=== PATIENT | female | born 1935 | race Caucasian/White ===

== ENCOUNTER → 2023-08-22 | Outpatient (CLI) | payer MEDICAID | LOC: MHCPAIN 10:01 | DX: M47.812 Spondylosis without myelopathy or radiculopathy, cervical region (principal); M48.02 Spinal stenosis, cervical region; M54.2 Cervicalgia; G44.86 Cervicogenic headache | CPT/HCPCS: G0463 ==

== ENCOUNTER → 2023-11-08 | Outpatient (CLI) | payer OTHER ==
[~2023-11-08] MED LIST: Atropine 1 MG/10 ML SYRINGE IV ONE
== END ==
LOC: MHCPAIN 09:31
DX: M47.812 Spondylosis without myelopathy or radiculopathy, cervical region (principal); M54.2 Cervicalgia
CPT/HCPCS: J0461; J0665

== ENCOUNTER → 2024-01-24 | Outpatient (CLI) | payer OTHER ==
[~2024-01-24] MED LIST changes: -Atropine 1 MG/10 ML SYRINGE IV ONE; +Lidocaine PF 2% (20 MG/ML) 5 ML VIAL ONE; +Midazolam 2 MG/2 ML VIAL ONE; +Ondansetron 4 MG/2 ML VIAL ONE; +fentaNYL 50 MCG/ML 2 ML VIAL ONE
== END ==
LOC: MHCPAIN 11:46
DX: M47.812 Spondylosis without myelopathy or radiculopathy, cervical region (principal); M54.2 Cervicalgia
CPT/HCPCS: J0665; J2250; J2405; J3010

== ENCOUNTER → 2024-02-13 | Outpatient (CLI) | payer OTHER | LOC: MHCPAIN 09:39 | DX: M47.812 Spondylosis without myelopathy or radiculopathy, cervical region (principal); M48.02 Spinal stenosis, cervical region | CPT/HCPCS: G0463 ==

== ENCOUNTER → 2024-06-04 | Outpatient (CLI) | payer MEDICARE | LOC: MHCPAIN 09:31 | DX: M47.812 Spondylosis without myelopathy or radiculopathy, cervical region (principal); M48.02 Spinal stenosis, cervical region | CPT/HCPCS: G0463 ==